=== PATIENT | female | born 1985 | race African-American/Black ===

== ENCOUNTER 2017-05-18 23:07 | Emergency (ER) | payer SELFPAY ==
[2017-05-18 23:14] VITALS: BP 124/81; PULSE 85; TEMP 98.7; BMI 21.1
[2017-05-19] MEDS ORDERED: ONDANSETRON 4 MG/2 ML VIAL IVPUSH ONE (01:04)
[2017-05-19] MEDS ORDERED: SODIUM CHLORIDE 1,000 ML IV STA (01:04)
--- NOTE | 2017-05-19 01:07 | PDOC ---
History of Present Illness - General History Source: Patient Exam Limitations: No Limitations - History of Present Illness Initial Comments: 05/19/17 01:15 The patient is a 32 year old female , with no significant past medical history who presents to the emergency department with nausea and vomiting for the past two weeks. Patient noticed bight red tinged vomit yesterday. Patient is unable to tolerate PO solids or liquids. Patient took urine test which was positive. Patient denies chest pain, headache or dizziness. Patient denies fever, chills, abdominal pain, diarrhea or constipation. Patient denies dysuria, frequency, urgency or hematuria. Patient denies sick contacts or recent travel. Note, LMP Mar 26. <Breanna Urrutia - Last Filed: 05/19/17 01:15> <Radha Rangel - Last Filed: 05/19/17 03:11> - General Chief Complaint: Nausea/Vomiting Stated Complaint: Nausea/Vomiting Time Seen by Provider: 05/18/17 23:55 Past History <Breanna Urrutia - Last Filed: 05/19/17 01:15> - Past Medical History COPD: No - Suicide/Smoking/Psychosocial Hx Smoking History: Never smoked <Radha Rangel - Last Filed: 05/19/17 03:11> - Past Medical History Allergies/Adverse Reactions: Allergies Allergy/AdvReac Type Severity Reaction Status Date / Time No Known Allergies Allergy Verified 05/18/17 23:12 Home Medications: Ambulatory Orders Doxylamine Succinate [Unisom] 25 mg PO HS PRN #20 tablet 05/19/17 Pyridoxine HCl (Vitamin B6) [B-] 25 mg PO DAILY PRN #20 lozenge 05/19/17 Review of Systems - Review of Systems Able to Perform ROS?: Yes Comments:: 05/19/17 01:21 CONSTITUTIONAL: Absent: fever, no chills, no fatigue EYES: Absent: visual changes ENT: Absent: ear pain, no sore throat CARDIOVASCULAR: Absent: chest pain, no palpitations RESPIRATORY: Absent: cough, no SOB GI: +nausea, vomitting. Absent: abdominal pain, no constipation, no diarrhea GENITOURINARY: Absent: dysuria, no frequency, no hematuria MUSCULOSKELETAL: Absent: back pain, no arthralgia, no myalgia SKIN: Absent: rash NEURO: Absent: headache <Breanna Urrutia - Last Filed: 05/19/17 01:15> *Physical Exam - Vital Signs Last Vital Signs Temp Pulse Resp BP Pulse Ox 98.7 F 85 18 124/81 99 05/18/17 23:12 05/18/17 23:12 05/18/17 23:12 05/18/17 23:12 05/18/17 23:12 - Physical Exam Comments: 05/19/17 01:21 GENERAL: Well-appearing, well-nourished. No apparent distress. HEENT: Normocephalic, atraumatic. PERRL, EOM intact. CARDIOVASCULAR: Normal S1, S2. Regular rate and rhythm. PULMONARY: Clear to auscultation bilaterally. ABDOMEN: Soft, non-distended, non-tender. EXTREMITIES: Normal ROM in all four extremities. No gross deformities. SKIN: Warm, dry. No rash NEUROLOGICAL: No focal neurological deficits. <Breanna Urrutia - Last Filed: 05/19/17 01:15> - Vital Signs Last Vital Signs Temp Pulse Resp BP Pulse Ox 98.7 F 85 18 124/81 99 05/18/17 23:12 05/18/17 23:12 05/18/17 23:12 05/18/17 23:12 05/18/17 23:12 <Radha Rangel - Last Filed: 05/19/17 03:11> ED Treatment Course - LABORATORY CBC & Chemistry Diagram: 05/19/17 01:30 05/19/17 01:30 <Radha Rangel - Last Filed: 05/19/17 03:11> Medical Decision Making - Medical Decision Making 05/19/17 02:51 32-year-old female who is presents with nausea and vomiting. She has no abdominal rebound or guarding. Last menstrual cycle was in March. She does have an appointment with ACCOUNTING DIRECTOR next week Impression hyperemesis plan IV fluids ,antiemetics and discharge home <Radha Rangel - Last Filed: 05/19/17 03:11> *DC/Admit/Observation/Transfer - Attestations Scribe Attestion: 05/19/17 01:22 Documentation prepared by Breanna Urrutia, acting as medical stenographer for Radha Rangel MD <Breanna Urrutia - Last Filed: 05/19/17 01:15> <Radha Rangel - Last Filed: 05/19/17 03:11> Diagnosis at time of Disposition: Hyperemesis - Discharge Dispostion Disposition: HOME Condition at time of disposition: Stable - Prescriptions Prescriptions: Doxylamine Succinate [Unisom] 25 mg PO HS PRN #20 tablet PRN Reason: Nausea Pyridoxine HCl (Vitamin B6) [B-] 25 mg PO DAILY PRN #20 lozenge PRN Reason: Nausea And/Or Vomiting - Patient Instructions Printed Discharge Instructions: DI for Hyperemesis Gravidarum Additional Instructions: please followup with your digital imaging specialist
[2017-05-19 01:18] LABS: URINE APPEARANCE SLCLOUDY; URINE BILIRUBIN NEGATIVE (NEGATIVE); URINE BLOOD 2+ (NEGATIVE); URINE COLOR AMBER; URINE GLUCOSE (UA) NEGATIVE (NEGATIVE); URINE KETONE 1+ (NEGATIVE); URINE LEUK ESTERASE NEGATIVE (NEGATIVE); URINE NITRITE NEGATIVE (NEGATIVE)
[2017-05-19 01:20] LABS: URINE PROTEIN 1+ (NEGATIVE)
[2017-05-19 01:25] LABS: EPI CELLS FEW /HPF (FEW); URINE BACTERIA RARE /hpf (NONE SEEN); URINE MUCUS MANY
[2017-05-19] MEDS ORDERED: ONDANSETRON 4 MG/2 ML VIAL ONE (01:25)
[2017-05-19 01:44] LABS: BASO % 0.2 % (0-2.0); EOS % 0.1 % (0-4.5); HEMATOCRIT 41.1 % (32.4-45.2); HEMOGLOBIN 14.2 GM/dL (10.7-15.3); LYMPH % 14.5 % (8-40); MCH 30.5 pg (25.7-33.7); MCHC 34.4 g/dl (32.0-36.0); MEAN CELL VOLUME 88.7 fl (80-96); MEAN PLT VOLUME 9.4 fl (7.5-11.1); MONO % 10.6 % (3.8-10.2); NEUT % 74.6 % (42.8-82.8); PLATELET COUNT 208 K/MM3 (134-434); RBC 4.64 M/mm3 (3.60-5.2); RDW 14.9 % (11.6-15.6)
[2017-05-19] MEDS ORDERED: DEXTROSE 5%-LACTATED RINGERS 1,000 ML IV SCH (01:45)
[2017-05-19 02:11] LABS: ALBUMIN 3.9 g/dl (3.4-5.0); ALK PHOS 53 U/L (45-117); ANION GAP 12 (8-16); BILIRUBIN,TOTAL 0.5 mg/dL (0.2-1.0); BLOOD UREA NITROGEN 12 mg/dL (7-18); CALCIUM 9.6 mg/dL (8.5-10.1); CHLORIDE 101 mmol/L (98-107); CO2 26 mmol/L (21-32); CREATININE 0.8 mg/dL (0.55-1.02); GLUCOSE,RANDOM 89 mg/dL (74-106); POTASSIUM 4.1 mmol/L (3.5-5.1); SGOT/AST 17 U/L (15-37); SGPT/ALT 21 U/L (12-78); SODIUM 139 mmol/L (136-145); TOT PROT 8.3 g/dl (6.4-8.2)
== END 2017-05-19 03:25 | disposition home or self-care (01) ==
LOC: JER 23:07
PROC: 3E033GC Introduction of Other Therapeutic Substance into Peripheral Vein, Percutaneous Approach (ICD-10-PCS; principal; 2017-05-18)
PROC: 3E033GC Introduction of Other Therapeutic Substance into Peripheral Vein, Percutaneous Approach (ICD-10-PCS; 2017-05-18)
DX: O26.891 Other specified pregnancy related conditions, first trimester (principal); O21.0 Mild hyperemesis gravidarum; Z3A.00 Weeks of gestation of pregnancy not specified
CPT/HCPCS: 36415; 80053; 81003; 81015; 84702; 84703; 85025; 99281-25; J7030

== ENCOUNTER 2017-06-09 10:51 | Emergency (ER) | payer OTHER ==
[2017-06-09 11:00] VITALS: BP 111/69; PULSE 98; TEMP 98.8; BMI 21.1
--- NOTE | 2017-06-09 11:19 | PDOC ---
History of Present Illness - General History Source: Patient Exam Limitations: No Limitations - History of Present Illness Initial Comments: 06/09/17 12:30 The patient is a 32-year-old female, 10 weeks , , with no significant past medical history, who presents to the emergency department with nausea and vomiting. She reports multiple episodes of non-bilious non-bloody vomiting since yesterday. She reports she was seen 2 weeks ago for the same complaint. Her PCP prescribed Zofran which provided relief, but her OBGYN switched her to Reglan daily which has not provided any significant relief. She denies any abdominal pain. She states she experienced similar bouts of emesis when she was 9 years ago. She denies any sick contacts, recent travel, change in diet. The patient denies chest pain, shortness of breath, headache and dizziness. The patient denies fever, chills, diarrhea and constipation. The patient denies dysuria, frequency, urgency and hematuria. Allergies: NKDA Past Surgical History: (9 years ago) Social History: No toxic habits reported <Sadie Chapman - Last Filed: 06/09/17 12:30> <Isabel Lujan - Last Filed: 06/09/17 15:12> - General Chief Complaint: Vomiting Blood Stated Complaint: VOMITING Time Seen by Provider: 06/09/17 11:19 Past History <Sadie Chapman - Last Filed: 06/09/17 12:30> - Past Medical History COPD: No Other medical history: DENIES. - Suicide/Smoking/Psychosocial Hx Smoking History: Never smoked <Isabel Lujan - Last Filed: 06/09/17 15:12> - Past Medical History Allergies/Adverse Reactions: Allergies Allergy/AdvReac Type Severity Reaction Status Date / Time No Known Allergies Allergy Verified 06/09/17 10:56 Home Medications: Ambulatory Orders Metoclopramide HCl [Reglan] 10 mg PO PRN PRN 06/09/17 Review of Systems - Review of Systems Able to Perform ROS?: Yes Comments:: 06/09/17 12:30 GENERAL/CONSTITUTIONAL: No fever or chills. No weakness. HEAD, EYES, EARS, NOSE AND THROAT: No change in vision. No ear pain or discharge. No sore throat. CARDIOVASCULAR: No chest pain or shortness of breath. RESPIRATORY: No cough, wheezing, or hemoptysis. GASTROINTESTINAL: (+) Nausea, (+) vomiting. No diarrhea or constipation. GENITOURINARY: No dysuria, frequency, or change in urination. MUSCULOSKELETAL: No joint or muscle swelling or pain. No neck or back pain. SKIN: No rash NEUROLOGIC: No headache, vertigo, loss of consciousness, or change in strength/ sensation. ENDOCRINE: No increased thirst. No abnormal weight change. HEMATOLOGIC/LYMPHATIC: No anemia, easy bleeding, or history of blood clots. ALLERGIC/IMMUNOLOGIC: No hives or skin allergy. <Sadie Chapman - Last Filed: 06/09/17 12:30> *Physical Exam - Vital Signs Last Vital Signs Temp Pulse Resp BP Pulse Ox 98.8 F 98 H 19 111/69 99 06/09/17 10:56 06/09/17 10:56 06/09/17 10:56 06/09/17 10:56 06/09/17 10:56 - Physical Exam Comments: 06/09/17 12:30 GENERAL: Awake, alert, and fully oriented, in no acute distress HEAD: No signs of trauma EYES: PERRLA, EOMI, sclera anicteric, conjunctiva clear ENT: Auricles normal inspection, hearing grossly normal, nares patent, oropharynx clear without exudates. Moist mucosa NECK: Normal ROM, supple, no lymphadenopathy, JVD, or masses LUNGS: Breath sounds equal, clear to auscultation bilaterally. No wheezes, and no crackles HEART: Regular rate and rhythm, normal S1 and S2, no murmurs, rubs or gallops ABDOMEN: Soft, nontender, normoactive bowel sounds. No guarding, no rebound. No masses EXTREMITIES: Normal range of motion, no edema. No clubbing or cyanosis. No cords, erythema, or tenderness NEUROLOGICAL: Cranial nerves II through XII grossly intact. Normal speech SKIN: Warm, Dry, normal turgor, no rashes or lesions noted. <Sadie Chapman - Last Filed: 06/09/17 12:30> - Vital Signs Last Vital Signs Temp Pulse Resp BP Pulse Ox 98.8 F 98 H 19 111/69 99 06/09/17 10:56 06/09/17 10:56 06/09/17 10:56 06/09/17 10:56 06/09/17 10:56 <Isabel Lujan - Last Filed: 06/09/17 15:12> ED Treatment Course - LABORATORY CBC & Chemistry Diagram: 06/09/17 11:47 06/09/17 11:47 - ADDITIONAL ORDERS Additional order review: 06/09/17 11:47 RBC 4.35 MCV 89.1 MCHC 34.2 RDW 14.8 MPV 9.2 Neutrophils % 79.9 Lymphocytes % 13.3 Monocytes % 6.4 Eosinophils % 0.1 Basophils % 0.3 <Sadie Chapman - Last Filed: 06/09/17 12:30> - LABORATORY CBC & Chemistry Diagram: 06/09/17 11:47 06/09/17 11:47 <Isabel Lujan - Last Filed: 06/09/17 15:12> Medical Decision Making - Medical Decision Making 06/09/17 12:27 Pt presents to the ED complaining of nausea and non bloody, non bilious emesis for several weeks. Symptoms are consistent with hyperemesis. Patient has been taking PO reglan at home without success. Will treat with IV hydration and antiemetics, reassess. Will admit if symptoms are not improving. <Isabel Lujan - Last Filed: 06/09/17 15:12> *DC/Admit/Observation/Transfer - Attestations Scribe Attestion: 06/09/17 12:31 Documentation prepared by Sadie Chapman, acting as medical historian for Isabel Lujan MD, /DO. <Sadie Chapman - Last Filed: 06/09/17 12:30> - Discharge Dispostion Admit: No <Isabel Lujan - Last Filed: 06/09/17 15:12> Diagnosis at time of Disposition: Hyperemesis - Discharge Dispostion Disposition: HOME Condition at time of disposition: Good - Patient Instructions Printed Discharge Instructions: DI for Hyperemesis Gravidarum Additional Instructions: return to the ED for abdominal pain, severe nausea and vomiting, other new or changing symptoms. Make sure that you call your hydraulic plumber tomorrow for follow up. - Post Discharge Activity Forms/Work/School Notes: Back to Work
[2017-06-09] MEDS ORDERED: SODIUM CHLORIDE 0.9% 500 ML INFUS.BAG IV ONE (11:44)
[2017-06-09] MEDS ORDERED: METOCLOPRAMIDE HCL INJECTION 10 MG/2 ML VIAL IVPUSH ONE (11:45)
[2017-06-09 12:14] LABS: BASO % 0.3 % (0-2.0); EOS % 0.1 % (0-4.5); HEMATOCRIT 38.7 % (32.4-45.2); HEMOGLOBIN 13.2 GM/dL (10.7-15.3); LYMPH % 13.3 % (8-40); MCH 30.5 pg (25.7-33.7); MCHC 34.2 g/dl (32.0-36.0); MEAN CELL VOLUME 89.1 fl (80-96); MEAN PLT VOLUME 9.2 fl (7.5-11.1); MONO % 6.4 % (3.8-10.2); NEUT % 79.9 % (42.8-82.8); PLATELET COUNT 201 K/MM3 (134-434); RBC 4.35 M/mm3 (3.60-5.2); RDW 14.8 % (11.6-15.6)
[2017-06-09 12:16] LABS: URINE APPEARANCE SLCLOUDY; URINE BILIRUBIN NEGATIVE (<2.0 mg/dL); URINE BLOOD NEGATIVE (NEGATIVE); URINE COLOR YELLOW; URINE GLUCOSE (UA) NEGATIVE (NEGATIVE); URINE KETONE 2+ (NEGATIVE); URINE LEUK ESTERASE NEGATIVE (NEGATIVE); URINE NITRITE NEGATIVE (NEGATIVE); URINE PROTEIN NEGATIVE (NEGATIVE)
[2017-06-09] MEDS ORDERED: METOCLOPRAMIDE HCL INJECTION 10 MG/2 ML VIAL ONE (12:23)
[2017-06-09 12:38] LABS: ANION GAP 10 (8-16); BILIRUBIN,TOTAL 0.7 mg/dL (0.2-1.0); BLOOD UREA NITROGEN 13 mg/dL (7-18); CALCIUM 9.6 mg/dL (8.5-10.1); CHLORIDE 101 mmol/L (98-107); CO2 26 mmol/L (21-32); CREATININE 0.6 mg/dL (0.55-1.02); GLUCOSE,RANDOM 65 mg/dL (74-106); SGPT/ALT 35 U/L (12-78); SODIUM 137 mmol/L (136-145); TOT PROT 8.4 g/dl (6.4-8.2)
[2017-06-09 12:54] LABS: ALK PHOS 61 U/L (45-117)
[2017-06-09 13:03] LABS: SGOT/AST 26 U/L (15-37)
== END 2017-06-09 15:40 | disposition home or self-care (01) ==
LOC: JER 10:51
PROC: 3E033GC Introduction of Other Therapeutic Substance into Peripheral Vein, Percutaneous Approach (ICD-10-PCS; principal; 2017-06-09)
DX: O26.891 Other specified pregnancy related conditions, first trimester (principal); O21.0 Mild hyperemesis gravidarum; Z3A.09 9 weeks gestation of pregnancy
CPT/HCPCS: 36415; 80053; 81003; 84702; 85025; 99284-25